=== PATIENT | female | born 1950 | race Caucasian/White ===

== ENCOUNTER → 2016-07-19 | Outpatient (CLI) | payer OTHER ==
[~2016-07-19] MED LIST: ALDACTONE25 MG PO; ASPIR 8181 MG PO; CARVEDILOL12.5 MG PO; CENTRUM SILVER1 EAC4 PO; CLEOCIN HCL150 MG PO; COUMADIN 4 MG TA4 M1 PO; DIGOXIN125 MCG PO; DOXYCYCLINE 10100 MG PO; GLUCOTROL5 MG PO; LASIX 40 MG TAB40 M2 PO; LEVOTHYROXINE 0.1 MG PO; MAGNESIUM OXID400 MG PO; PACERONE 200 M200 M1 PO; POTASSIUM20 PO
== END ==
LOC: HYPER 07:04
DX: E11.622 Type 2 diabetes mellitus with other skin ulcer (principal); I87.2 Venous insufficiency (chronic) (peripheral); L97.811 Non-pressure chronic ulcer of other part of right lower leg limited to breakdown of skin; L08.9 Local infection of the skin and subcutaneous tissue, unspecified; M10.049 Idiopathic gout, unspecified hand; E03.9 Hypothyroidism, unspecified; M14.672 Charcot's joint, left ankle and foot; M85.80 Other specified disorders of bone density and structure, unspecified site; E11.22 Type 2 diabetes mellitus with diabetic chronic kidney disease; I13.0 Hypertensive heart and chronic kidney disease with heart failure and stage 1 through stage 4 chronic kidney disease, or unspecified chronic kidney disease; N18.4 Chronic kidney disease, stage 4 (severe); I50.9 Heart failure, unspecified; E11.40 Type 2 diabetes mellitus with diabetic neuropathy, unspecified; E11.69 Type 2 diabetes mellitus with other specified complication; M86.8X8 Other osteomyelitis, other site; I48.91 Unspecified atrial fibrillation; E78.5 Hyperlipidemia, unspecified; Z87.891 Personal history of nicotine dependence

== ENCOUNTER → 2016-08-02 | Outpatient (CLI) | payer OTHER | LOC: HYPER 07:11 | DX: E11.622 Type 2 diabetes mellitus with other skin ulcer (principal); L97.812 Non-pressure chronic ulcer of other part of right lower leg with fat layer exposed; M18.11 Unilateral primary osteoarthritis of first carpometacarpal joint, right hand; M10.49 Other secondary gout, multiple sites; I42.0 Dilated cardiomyopathy; E03.9 Hypothyroidism, unspecified; I48.2 Chronic atrial fibrillation; M19.049 Primary osteoarthritis, unspecified hand; E11.610 Type 2 diabetes mellitus with diabetic neuropathic arthropathy; M76.51 Patellar tendinitis, right knee; M85.80 Other specified disorders of bone density and structure, unspecified site; E66.9 Obesity, unspecified; Z79.1 Long term (current) use of non-steroidal anti-inflammatories (NSAID); E11.22 Type 2 diabetes mellitus with diabetic chronic kidney disease; I13.0 Hypertensive heart and chronic kidney disease with heart failure and stage 1 through stage 4 chronic kidney disease, or unspecified chronic kidney disease; N18.4 Chronic kidney disease, stage 4 (severe); I50.20 Unspecified systolic (congestive) heart failure; E11.69 Type 2 diabetes mellitus with other specified complication; M86.8X8 Other osteomyelitis, other site; E78.5 Hyperlipidemia, unspecified; Z87.891 Personal history of nicotine dependence ==